=== PATIENT | female | born 2000 | race Two or more races ===

== ENCOUNTER → 2024-07-13 | Outpatient (CLI) | payer BC, SELFPAY ==
--- NOTE | 2024-07-13 16:00 | XR_ITS ---
Examination: Pelvic ultrasound, transabdominal, complete Technique: Transabdominal ultrasound of the pelvis performed using grayscale imaging Date and time of exam: July 13, 2024 1624 hours INDICATIONS: Irregular heavy menses 8 years FINDINGS: Uterus 6.9 x 3.7 x 5.5 cm Endometrial sign 0.5 cm No uterine mass or intrauterine gestation Right ovary 6.1 x 4.7 x 7.1 cm arterial flow, 4.3 x 4.7 x 6.5 cm cyst Left ovary 11.4 x 5.8 x 9.1 cm arterial flow, 8.9 x 4.5 x 7.6 cm cyst IMPRESSION: No uterine mass or intrauterine gestation Bilateral ovarian cysts, recommend 3-6 month follow-up transabdominal pelvic sonography
== END | disposition home or self-care (01) ==
PROVIDERS: Referring Provider Nurse Practitioner Family; Visit Provider Nurse Practitioner Family
DX: N83.202 Unspecified ovarian cyst, left side (principal); N83.201 Unspecified ovarian cyst, right side
CPT/HCPCS: 76856

== ENCOUNTER 2025-03-08 11:52 | Emergency (ER) | payer MEDICAID, SELFPAY ==
[2025-03-08 12:17] VITALS: BP 153/83; PULSE 89; RESP 18; TEMP 36.9; O2SAT 99; BMI 40.7
--- NOTE | 2025-03-08 12:20 | XR_ITS ---
Examination: Abdomen sonogram, Limited Date and time of exam: March 08, 2025, 1239 hours INDICATIONS: Epigastric pain and vomiting beginning today Technique: Real-time brown scale transabdominal sonographic images of the upper abdomen obtained. Findings: Normal gallbladder Normal common bile duct 0.4 cm Pancreatic head 3.0 cm Liver 15.1 cm no focal liver lesions Normal hepatopedal portal venous flow Patent IVC Impression: Mildly prominent pancreatic head History pancreatitis is a clinical concern, recommend CTA abdomen postcontrast follow-up
--- NOTE | 2025-03-08 12:20 | XR_ITS ---
Examination: CT abdomen and pelvis without contrast. Coronal 3-D reconstructions. Sagittal 2-D reconstructions. Date and time of exam:March 08, 2025, 1352 hours INDICATIONS: Onset mid abdominal pain nausea vomiting beginning this morning CTDI: vol (mGy): 15.6 DLP: (mGycm): 977 Technique: Axial images of the abdomen have been obtained, 3 mm slice thickness Intravenous contrast material has not been administered. Low dose protocols were performed. One or more of the following dose reduction techniques were used; automated exposure control, adjustment of the mA and/or KV according to patient size, use of iterative reconstruction technique. Findings: No focal liver or splenic lesions on this noncontrast study No gallstones No pancreatic or adrenal mass. No renal or ureteral calculi, no hydronephrosis Minimal thickening of the umbilical tract Normal appendix No bowel obstruction No diverticulitis Anteverted uterus Left pelvic cystic mass, 8 x 6 cm with calcification in the wall of the cystic mass Bladder intact Osseous structures intact Impression: 8 x 6 cm complex left pelvic cystic mass, recommend pelvic sonography follow-up
--- NOTE | 2025-03-08 12:21 | EDRME_ITS ---
Rapid Medical Screening Exam [facility] Arrival date/time: 03/08/25 11:52 24-year-old female with no known medical history presents to the emergency room with a chief complaint of 10 out of 10 right upper quadrant and epigastric abdominal pain x 1 hour. I have greeted and performed a focused initial assessment of this patient. A comprehensive ED assessment and evaluation of the patient, analysis of all test results, and completion of the medical decision making process will be conducted by additional ED providers. Chief Complaint: Abdominal Pain Time Seen by Provider: 03/08/25 12:11 Vital signs: Vital Signs Temperature 98.5 F 03/08/25 12:17 Pulse Rate 89 03/08/25 12:17 Respiratory Rate 18 03/08/25 12:17 Blood Pressure 153/83 H 03/08/25 12:17 Pulse Oximetry (%) 99 03/08/25 12:17 Oxygen Delivery Method Room Air 03/08/25 12:17 Vital signs reviewed by provider: Yes
[2025-03-08] MEDS: ONDANSETRON ODT 4 MG TABRAP PO (12:35)
[2025-03-08] MEDS: KETOROLAC INJ 60 MG/2 ML VIAL 30 MG IM (12:36)
[2025-03-08 12:47] LABS: Basophils # (Auto) 0.1 Thou/mm3 (0.0-0.2); Basophils % (Auto) 1 % (0-2.5); Eosinophils # (Auto) 0.3 Thou/mm3 (0.0-0.5); Eosinophils % (Auto) 3 % (0-10); Hematocrit 40.7 % (36.0-46.0); Hemoglobin 13.5 g/dL (12.0-16.0); Immature Granulocytes Auto 0.05 Thou/mm3 (0.00-0.00); Lymphocytes # (Auto) 2.7 Thou/mm3 (1.0-4.8); Lymphocytes % (Auto) 28 % (10-50); Mean Corpuscular HGB Conc 33.2 g/dl (31.0-37.0); Mean Corpuscular Hemoglobin 29.6 pg (25.0-35.0); Mean Corpuscular Volume 89 fL (80-100); Monocytes # (Auto) 0.6 Thou/mm3 (0.0-0.8); Monocytes % (Auto) 6 % (0-12); Neutrophils # (Auto) 6.1 Thou/mm3 (1.8-7.7); Neutrophils % (Auto) 62 % (37-80); Nucleated Red Blood Cell # 0.00 Thou/mm3 (0.00-0.00); Nucleated Red Blood Cell % 0 /100 WBC (0); Platelet Count 481 Thou/mm3 (140-440); RDW Standard Deviation 44.2 fL (36.4-46.3); Red Blood Count 4.56 Miln/mm3 (4.00-5.20); White Blood Count 9.8 Thou/mm3 (3.6-11.0)
[2025-03-08 13:01] LABS: Collection Type, Urine Clean Catch
[2025-03-08 13:04] LABS: Alanine Aminotransferase 37 U/L (10-49); Albumin, Serum 4.4 gm/dL (3.5-5.0); Albumin/Globulin Ratio 1.5 (1.2-2.2); Alkaline Phosphatase 91 U/L (46-116); Anion Gap 10 (7-16); Aspartate Amino Transferase 70 U/L (0-34); BUN/Creatinine Ratio 11 Ratio (12-20); Bilirubin,Total 0.4 mg/dL (0.3-1.2); Blood Urea Nitrogen 8 mg/dL (9-23); Calcium 9.8 mg/dL (8.3-10.6); Calcium (Corrected) 9.8 mg/dL (8.5-10.1); Carbon Dioxide 25.1 mMol/L (20.0-31.0); Chloride 106 mMol/L (98-107); Creatinine (Component) 0.7 mg/dL (0.6-1.3); Estimated Creatinine Clearance 167.4 mL/min (>60); Globulin 3.0 gm/dL (2.3-3.5); Glucose 102 mg/dL (74-106); Lipase 43 U/L (12-53); Osmolality,Calculated 279 (275-295); Potassium 4.0 mMol/L (3.4-5.1); Sodium 141 mMol/L (136-145); Total Protein 7.4 gm/dL (5.7-8.2); eGFR > 60 See Note
[2025-03-08 13:20] LABS: Bilirubin,Urine Negative (Negative); Blood,Urine Negative (Negative); Clarity,Urine Clear (Clear/Hazy); Color,Urine Lt-Yellow (Lt Yel-Yel); Glucose, Urine Negative (Negative); Ketones,Urine Negative (Negative); Leukocyte Esterase,Urine Negative (Negative); Nitrite,Urine Negative (Negative); PH,Urine 6.0 (5.0-7.0); Protein,Urine Negative (Neg - Trace); RBC,Urine < 1 /hpf (0-3); Specific Gravity,Urine 1.014 (1.001-1.035); Squamous Epithelial Cell,Urine 4 /hpf (0-5); Urobilinogen,Urine Negative mg/dL (0.0-1.0); WBC,Urine 1 /hpf (0-5)
[2025-03-08 13:27] LABS: HCG Qualitative,Urine Negative
[2025-03-08 14:29] VITALS: BP 114/73; PULSE 88; RESP 15; O2SAT 99
--- NOTE | 2025-03-08 14:52 | EDNOTE_ITS ---
ED General RME/HPI General Chief complaint: Abdominal Pain Stated complaint: UPPER ABD PAIN, 10/10; VOMITING Time Seen by Provider: 03/08/25 12:11 Arrival date/time: 03/08/25 11:52 CC: Epigastric pain radiate up in the center chest with bilateral radiation to the left on the right and radiating to the back. Abrupt onset approximately 1 hour prior to arrival with spontaneous resolution. Patient denies nausea vomiting has had episodes prior to this 1 of less intensity. Patient denies fever chills chest pain shortness of breath or difficulty breathing denies any lower abdominal pain painful urination bloody urination diarrhea or constipation. RME / HPI RME / HPI narrative: 03/08/25 11:52 24-year-old female with no known medical history presents to the emergency room with a chief complaint of 10 out of 10 right upper quadrant and epigastric abdominal pain x 1 hour. I have greeted and performed a focused initial assessment of this patient. A comprehensive ED assessment and evaluation of the patient, analysis of all test results, and completion of the medical decision making process will be conducted by additional ED providers. Related Data Previous Rx's ?Medication ?Instructions ?Recorded acetaminophen 325 mg capsule 650 mg (2 x 325 mg) PO Q6 H PRN 09/19/19 fever or pain #30 caps penicillin V potassium 500 mg 500 mg PO BID #20 tabs 0 09/19/19 tablet acetaminophen 500 mg capsule 1,000 mg (2 x 500 mg) PO Q8HR PRN 06/11/20 pain #60 caps azithromycin 500 mg tablet See Rx Instructions PO .COM PLEX #6 06/11/20 tabs pantoprazole 20 mg tablet,delayed 20 mg PO QDAY #30 ta bs 03/08/25 release (Protonix) Allergies Allergy/AdvReac Type Severity Reaction Status Date / Time No Known Allergies Allergy Verified 03/08/25 11:55 Review of Systems Review of Systems Narrative Review of Systems: GEN: No fever, no chills, no weight loss EYES: No discharge, no visual changes, no pain HEENT: No ear pain, no congestion, no sore throat PULM: No shortness of breath, no cough, no congestion CV: No chest pain, no dyspnea on exertion, no palpitations GI: No nausea, no vomiting, no diarrhea, + pain, no constipation : No frequency, no urgency, no dysuria MUSC/SKEL: No joint pain, no back pain SKIN: No rash PSYCH: No hallucinations, no depression HEME/LYMPH: No easy bleeding or bruising tendencies NEURO: No weakness, no headache Past Medical History Past Medical History CARDIAC: Negative Congestive Heart Failure RESPIRATORY: Negative Chronic Obstructive Pulmonary Disease (COPD) GENITOURINARY: Negative Renal Disease ENDOCRINE: Negative Diabetes Mellitus Type 1 or Diabetes Mellitus Type 2 Social History SMOKING STATUS: Never smoker ED Exam Narrative Physical exam: [General: Obese not in any acute distress Head normocephalic HEENT: Within acceptable limits Neck is supple nontender Chest equal chest rise nontender to palpation Respiratory: Clear to auscultation no wheezes crackles or rubs CV: Rate rhythm is regular no murmurs rubs or clicks Abdomen is distended secondary to body habitus soft nontender no masses positive bowel sounds all 4 quadrants Back: No CVA tenderness no spinous process tenderness from cervical spine thoracic and lumbar spine Skin: Intact no petechiae rash induration ulceration or crepitus Extremities: Moving all extremity against resistance cap refill less than 2 seconds neurosensory intact Neuro: Awake alert oriented x3 Glascow coma 15 no focal deficits] Course Quality Measures none Orders Category Date Time Status CT abdomen pelvis wo con Stat Exams 03/08/25 12:20 Completed US gall bladder Stat Exams 03/08/25 12:20 Completed CBC Stat Lab 03/08/25 12:28 Completed CMP [Comprehensive Metabolic Panel] Stat Lab 03/08/25 12:28 Completed HCG Qualitative,Urine Stat Lab 03/08/25 12:43 Completed Lipase Stat Lab 03/08/25 12:28 Completed UA [Urinalysis] Stat Lab 03/08/25 12:43 Completed Urine Culture Stat Lab 03/08/25 12:43 Received Ketorolac Inj [Toradol Inj] Med 03/08/25 12:20 Discontinued 30 mg IM X1 ONE Ondansetron Odt [Zofran Odt] Med 03/08/25 12:28 Discontinued 4 mg PO X1 ONE Vital Signs Vital signs: Vital Signs Temperature 98.5 F 03/08/25 12:17 Pulse Rate 89 03/08/25 12:17 Respiratory Rate 18 03/08/25 12:17 Blood Pressure 153/83 H 03/08/25 12:17 Pulse Oximetry (%) 99 03/08/25 12:17 Oxygen Delivery Method Room Air 03/08/25 12:17 Discharge Plan Plan Patient Disposition: HOME (Self Care) Patient condition on transfer: Stable Prescriptions/Referrals Prescriptions/Med Rec: New pantoprazole [Protonix] 20 mg tablet,delayed release (DR/EC) 20 mg PO QDAY Qty: 30 1RF No Action acetaminophen 500 mg capsule 1,000 mg PO Q8HR PRN (Reason: pain) Qty: 60 0RF azithromycin 500 mg tablet See Rx Instructions .ROUTE .COMPLEX Qty: 6 0RF Rx Instructions: take 500 mg today (day 1), then 250 mg for 4 days (days 2-5) acetaminophen 325 mg capsule 650 mg PO Q6H PRN (Reason: fever or pain) Qty: 30 0RF penicillin V potassium 500 mg tablet 500 mg PO BID Qty: 20 0RF Referrals: No Primary/Family,Physician [Primary Care Provider] - In 1 week Maurice Tolbert MD [Physician, Family Practice] - In 1 week Problem List Clinical Impression: Acid reflux Patient/Caregiver Discharge Instructions Other Activity Instructions:: Follow-up with your primary care doctors see if it is acceptable to use a bland diet while on the weekly shots, ask your doctor about H. pylori. Take the medications as prescribed if there is worsening of symptoms in spite of the medications return the emergency room immediately for further evaluation. Education Materials: How Acid Reflux Affects Your Throat Print Language: Bahraini Stand Alone Forms: Debby Award Info., Patient Portal Info Letter, Work/School Release PA/POINT OF CARE SPECIALIST Supervising Physician PA/POINT OF CARE SPECIALIST Supervising Physician: Delano Mcintyre ENP [facility] Clinical Information Provided by: patient Medical Records reviewed [facility] Meds/Rx considered, not ordered None Labs/Rad/Tests considered, not ordered None Chronic Illness/Social Conditions Explain: Obesity EKG EKG not done Labs Labs: interpreted by [facility] Lab(s) Interpretation(s): CBC showed no acute leukocytosis anemia thrombocytopenia CMP shows no electrolyte imbalances renal impairment transaminitis or T. bili elevation. Lipase is 43 Urine is negative for UTI hCG is negative. Imaging Imaging interpretation: interpreted by [facility] Imaging Interpretation(s): Gallbladder ultrasound shows an unremarkable gallbladder but a mildly enlarged pancreatic head. CT abdomen pelvis shows a left complex cystic mass. Medication Administration(s) none Medication Administration History Discontinued Medications Ketorolac Tromethamine (Ketorolac Inj 60 Mg/2 Ml Vial) 30 mg IM X1 ONE Stop: 03/08/25 12:21 Last Admin: 03/08/25 12:36 Dose: 30 mg Documented By: Ondansetron HCl (Ondansetron Odt 4 Mg Tabrap) 4 mg PO X1 ONE; Protocol Stop: 03/08/25 12:29 Last Admin: 03/08/25 12:35 Dose: 4 mg Documented By: Diagnosis Differential Diagnosis ED Complaint MDM: Dyspepsia pancreatitis cholelithiasis cholecystitis choledocholithiasis
== END 2025-03-08 15:25 | disposition home or self-care (01) ==
PROVIDERS: Nurse Practitioner Family; Emergency Provider Emergency Medicine
DX: K21.9 Gastro-esophageal reflux disease without esophagitis (principal); N94.89 Other specified conditions associated with female genital organs and menstrual cycle
CPT/HCPCS: 36415; 74176; 76705; 80053; 81001; 81025; 83690; 85025; 87086; 96372; 99283; J1885; Q0162